=== PATIENT | female | born 2000 | race Caucasian/White ===

== ENCOUNTER 2024-11-01 07:43 | Emergency (ER) | payer MEDICAID, SELFPAY ==
--- NOTE | 2024-11-01 07:57 | PC.NURSE ---
PT LEFT TO GO SEE PCP. PT THOUGHT THEY WOULD NOT SEE HER BECAUSE SHE IS HAVING A FEVER BUT SHE CALLED THE OFFICE AND THEY WILL SEE HER AT HER 9AM APPT. PT NOT TRIAGED OR SEEN IN ER.
== END 2024-11-01 07:58 | disposition left against medical advice (07) ==
LOC: SERX 08:02
PROVIDERS: Emergency Provider Emergency Medicine
DX: Z53.21 Procedure and treatment not carried out due to patient leaving prior to being seen by health care provider (principal)
CPT/HCPCS: 99282

== ENCOUNTER 2024-11-02 11:04 | Emergency (ER) | payer MEDICAID, SELFPAY ==
[2024-11-02 11:35] VITALS: BP 120/84; PULSE 86; RESP 16; TEMP 36.9; O2SAT 97; BMI 31.4
--- NOTE | 2024-11-02 11:46 | PD.EDHA ---
ED Headache RME/HPI General Chief Complaint: Headache Stated Complaint: MIGRAINE X 3 DAYS, UNABLE TO EAT/DRINK; 13WK PREG Time Seen by Provider: 11/02/24 11:37 Arrival date/time: 11/02/24 11:04 RME / HPI RME / HPI Narrative: 24-year-old female patient came in for evaluation regarding headache. Patient's been having migraine headache for the last 3 days, unable to eat or drink due to nausea. Was seen by PCP yesterday and was prescribed Reglan however patient did not take the Reglan due to nausea. Patient denies any vomiting. Denies any fever. Denies any abdominal pain denies any pelvic pain denies any vaginal bleeding or spotting. Patient is 3 para 2 about 13 weeks . Patient told me that she had blood drawl time yesterday and urinalysis done yesterday all came back normal. Patient came in wanting to have IV fluids. Related Data Home Medications ?Medication ?Instructions ?Recorded ?Confirmed vits no.[id number]-ferrous fum 1 tab PO QDAY 12/16/21 02/11/22 27 mg iron-folic acid 800 mcg tablet ( Vitamin) Previous Rx's ?Medication ?Instructions ?Recorded hydrocodone 5 mg-acetaminophen 325 1 tab PO BID PRN pain #10 tabs 08/31/22 mg tablet ibuprofen 800 mg tablet 800 mg PO TID PRN pain #30 tabs 08/31/22 Allergies Allergy/AdvReac Type Severity Reaction Status Date / Time ceftriaxone Allergy Unknown RASH, HIVES Verified 11/02/24 11:09 amoxicillin Allergy Verified 11/02/24 11:09 Review of Systems Review of Systems Narrative Review of Systems: Review of system reviewed and within normal limits except mentioned in HPI ED Exam Narrative Physical exam: VITAL SIGNS: Reviewed. GENERAL APPEARANCE: Alert and interactive, follows commands, no acute distress, HEAD AND FACE: Non-traumatic. ENT: PERRL, pink conjunctivitis, eyelid no trauma, Mucous membrane dry NECK: Supple, nontender, no nuchal rigidity. CHEST: No tenderness, no crepitus, no paradoxical movement, no retractions. LUNGS: Clear, well ventilated, symmetric, no rales, no wheezing, no ronchi, no stridor, good breath sounds bilaterally. HEART: Regular rate, regular rhythm, no murmur, no gallops. ABDOMEN: Soft, positive bowel sounds, nondistended, no guarding, nontender, no rebound, no masses, RECTAL: Deferred. GENITAL: Deferred. NEUROLOGICAL: Gross motor function intact sensory function intact, Appropriate for age. MUSCULOSKELETAL: low back nontender, full range of motion. EXTREMITIES: Nontender, full range of motion. SKIN: Color pink, dry, no rash, no lacerations, no abrasions, no contusions. LYMPHATICS: Deferred. Course Quality Measures none Orders Category Date Time Status Metoclopramide Inj [Reglan Inj] Med 11/02/24 11:45 Discontinued 10 mg IVP X1 ONE Sodium Chloride 0.9% 1000 ml [Ns] 1,000 ml Med 11/02/24 11:46 Discontinued IV 999 mls/hr Vital Signs Vital signs: Vital Signs Temperature 98.5 F 11/02/24 11:35 Pulse Rate 86 11/02/24 11:35 Respiratory Rate 16 11/02/24 11:35 Blood Pressure 120/84 11/02/24 11:35 Pulse Oximetry (%) 97 11/02/24 11:35 Oxygen Delivery Method Room Air 11/02/24 11:35 Headache MDM Narrative MDM Narrative:: 24-year-old female patient came in for evaluation regarding headache. Patient's been having migraine headache for the last 3 days, unable to eat or drink due to nausea. Was seen by PCP yesterday and was prescribed Reglan however patient did not take the Reglan due to nausea. Patient denies any vomiting. Denies any fever. Denies any abdominal pain denies any pelvic pain denies any vaginal bleeding or spotting. Patient is 3 para 2 about 13 weeks . Patient told me that she had blood drawl time yesterday and urinalysis done yesterday all came back normal. Patient came in wanting to have IV fluids. Imaging or workup is not done at this time patient does not want repeat blood or urinalysis because she told me yesterday her RN PHYSICIAN OFFICE did all the test and they are all came back normal. Patient received IV fluids and Reglan with significant improvement of symptoms. Patient data External records reviewed:: None Clinical information provided by:: patient Social determinants that could affect healthcare access:: none Patient has the following chronic illnesses:: None How is presenting disease/condition affected by chronic disease/condition?: no chronic disease Evaluation data The following diagnostics were reviewed and interpreted by me:: other (specify) Lab and/or radiology exams considered but not ordered:: None Interpretation Summary: None Medications / Prescriptions Medications or Prescriptions considered but not ordered:: None Medication administrations:: Medication Administration History Discontinued Medications Sodium Chloride (Ns) 1,000 mls @ 999 mls/hr IV .Q1H1M ONE Stop: 11/02/24 12:46 Last Infusion: 11/02/24 13:42 Dose: Infused Documented By: Admin: 11/02/24 12:12 Dose: 999 mls/hr Documented By: MASOOD Metoclopramide HCl (Metoclopramide Inj 5 Mg/Ml Vial 2 Ml) 10 mg IVP X1 ONE; Protocol Stop: 11/02/24 11:46 Last Admin: 11/02/24 12:12 Dose: 10 mg Documented By: MASOOD Mcdonough and IV fluids for hydration Consultations Consultation(s) initiated? (list below): No Diagnosis Differential diagnosis headache: other (Dehydration, hyperemesis gravidarum, ) Most likely diagnosis given after review of the tests above:: Hyperemesis gravidarum, Admission Indicated Admission indicated?: not indicated Admission Request Was there a request for admission?: No Disposition Plan Disposition Plan: Discharge Discharge Attestation Discharge Attestation: The patient was given an opportunity to ask questions and understood the discharge instructions. Discharge instructions specifically effects, indications for sooner follow up or return to the emergency department, and the expected course of current diagnosis. Patient condition: Stable Discharge Plan Plan Patient Disposition: HOME (Self Care) Discharge Disposition comment: Stable Prescriptions/Referrals Prescriptions/Med Rec: No Action ibuprofen 800 mg tablet 800 mg PO TID PRN (Reason: pain) Qty: 30 0RF hydrocodone-acetaminophen 5-325 mg tablet 1 tab PO BID MDD 10 PRN (Reason: pain) Qty: 10 0RF Vitamin 27 mg iron- 800 mcg Tablet 1 tab PO QDAY Referrals: Tj Thibodeaux MD [Primary Care Provider] - In 1 week Problem List Clinical Impression: Hyperemesis gravidarum Patient/Caregiver Discharge Instructions Discharge Activity: activity as tolerated Education Materials: ED Rodriguez Catheter, Care Additional Instructions: Thank you for the opportunity for serving you today. You are stable for discharged . You are advised to: Follow-up with your PCP in 1 to 2 days Return to ED for worsening of symptoms Increase oral fluids Continue taking your Reglan prescribed by your RN PHYSICIAN OFFICE Print Language: Burmese Stand Alone Forms: Karli Award Info., Patient Portal Info Letter PA/HEEL COVERER Supervising Physician PA/HEEL COVERER Supervising Physician: MD Xavier
[2024-11-02] MEDS: METOCLOPRAMIDE INJ 5 MG/ML VIAL 2 ML 10 MG IVP (12:12)
[2024-11-02] MEDS: SODIUM CHLORIDE 0.9% 1000 ML 1,000 ML 999 ML IV (12:12)
== END 2024-11-02 14:04 | disposition home or self-care (01) ==
PROVIDERS: Emergency Provider Family Medicine; PCP Family Medicine
DX: O21.0 Mild hyperemesis gravidarum (principal)
CPT/HCPCS: 96361; 96374; 99283; J2765; J7030

== ENCOUNTER 2025-03-17 21:16 | Observation (INO) | payer MEDICAID, SELFPAY ==
[2025-03-17 21:26] VITALS: BMI 35.0
[2025-03-17 21:33] VITALS: BP 131/76; PULSE 90
[2025-03-17 21:34] VITALS: BP 131/76; PULSE 90; RESP 100; RESP 18; TEMP 37.1
[2025-03-17 21:51] LABS: ROM Kit Exp Date# 04/11/28; ROM Kit Lot # 58106258; Swb Mxed in Solvent 1 min? Yes
--- NOTE | 2025-03-17 21:51 | ESPR_ITS ---
Documentation for date of: 03/17/25 OB Labor Progress Note Assessment and Plan Comments: L&D Triage Note Shaylee is a 25yo with SIUP at 31&5wk presenting to L&D for vaginal leakage of fluid. She notes no painful/regular ctx, no vaginal bleeding. Normal movement. PMhx/PNC significant for: -PNC [facility] --> [place] -Current BMI 35 -Hx of 2 prior ROS negative other than what was described above. Vitals wnl, afebrile General: well developed, well nourished, no acute distress, conversant Cardiac: normal heart rate Lungs: breathing without distress Abdomen: soft, gravid, non-tender, no rebound or guarding Extremities: no edema BLE Per RN: No gross leakage of fluid or pooling with collection of AmniSure and Vaginitis swab NST: Reassuring for gestational age, +accels, one small variable decel, mod kaylen [place]: no regular ctx pattern Labs: AmniSure ROM Test: Negative Vaginitis swab: negative for pelon, BV and trichomonas Ultrasound: Date of Service: 03/17/25 Procedure(s): US OB limited Accession Number(s): [id number] cc: George Mercado MD; NO PRIMARY/FAMILY,PHYSICIAN; Carmelina Fields MD~ EXAMINATION: age Limited TECHNIQUE: Limited transabdominal sonographic images pelvis INDICATIONS: Vaginal discharge with pelvic contractions beginning 12 hours ago FINDINGS: Viable intrauterine gestation cephalic presentation Amniotic fluid index 13.3 cm Cervix 4.6 cm Cardiac motion 138 bpm IMPRESSION: Viable intrauterine gestation cephalic presentation Assessment: Shaylee is a 25yo with SIUP at 31&5wk with no evidence of ROM. Vitals wnl, benign exam. Reassuring status. Plan: -Continue routine follow up with OBGYN -Tried to call patient to notify of negative vaginitis swab result when it resulted, but went straight to voicemail -Discussed return precautions Carmelina Fields MD
[2025-03-17 22:01] LABS: Rupture of Fetal Membranes Negative (Negative)
[2025-03-17 22:03] VITALS: BP 127/66; PULSE 85
--- NOTE | 2025-03-17 22:12 | XR_ITS ---
EXAMINATION: age Limited TECHNIQUE: Limited transabdominal sonographic images pelvis INDICATIONS: Vaginal discharge with pelvic contractions beginning 12 hours ago FINDINGS: Viable intrauterine gestation cephalic presentation Amniotic fluid index 13.3 cm Cervix 4.6 cm Cardiac motion 138 bpm IMPRESSION: Viable intrauterine gestation cephalic presentation
[2025-03-17 22:33] VITALS: BP 137/82; PULSE 85
[2025-03-17 23:04] VITALS: BP 121/65; PULSE 75
[2025-03-18 08:12] LABS: BVAG Candida Negative (Negative); Bacterial Vaginosis Markers Negative (Negative); Candida glabrata Negative (Negative); Candida krusei PCR Negative (Negative); Trichomonas Negative (Negative)
== END 2025-03-17 23:40 | disposition home or self-care (01) ==
PROVIDERS: Admitting Provider Obstetrics & Gynecology; Visit Provider Obstetrics & Gynecology
DX: O47.03 False labor before 37 completed weeks of gestation, third trimester (principal); Z3A.31 31 weeks gestation of pregnancy
CPT/HCPCS: 59025; 59899; 76815; 81514; 84112